=== PATIENT | female | born 1975 | race Caucasian/White ===

== ENCOUNTER 2022-06-24 10:10 | Emergency (ER) | payer OTHER, MEDICARE ==
[2022-06-24] MEDS ORDERED: PREDNISONE 20MG20 MG PO (12:33)
== END 2022-06-24 12:51 | disposition home or self-care (01) ==
LOC: FER 10:10
DX: L27.0 Generalized skin eruption due to drugs and medicaments taken internally (principal); R00.0 Tachycardia, unspecified; T50.995A Adverse effect of other drugs, medicaments and biological substances, initial encounter; Z85.3 Personal history of malignant neoplasm of breast; Z90.49 Acquired absence of other specified parts of digestive tract; Z88.8 Allergy status to other drugs, medicaments and biological substances; Z91.041 Radiographic dye allergy status; Y92.9 Unspecified place or not applicable
CPT/HCPCS: J1200; J2405; J2930; J7030